=== PATIENT | male | born 1970 | race African-American/Black ===

== ENCOUNTER 2016-11-18 00:36 | Emergency (ER) | payer MEDICARE, MEDICAID ==
[2016-11-18] MEDS ORDERED: oxyCODONE/Acetamin 5/325 MG* TAB PO ONE (01:14)
[2016-11-18] MEDS ORDERED: Tetan/Diph/Pertus SYR(Tdap)* 0.5 ML SYR(BOOSTRIX) use SYR IM ONE ×2 (01:16→02:01)
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
[2016-11-18 04:21] VITALS: BP 132/71
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
== END 2016-11-18 04:30 | disposition home or self-care (01) ==
LOC: ED 00:36
DX: R51 Headache (principal); S06.9X1A Unspecified intracranial injury with loss of consciousness of 30 minutes or less, initial encounter; S01.01XA Laceration without foreign body of scalp, initial encounter; S00.83XA Contusion of other part of head, initial encounter; S09.90XA Unspecified injury of head, initial encounter; W22.8XXA Striking against or struck by other objects, initial encounter; Y93.9 Activity, unspecified; Y92.9 Unspecified place or not applicable
CPT/HCPCS: 70450; 70486; 72125; 90471; 90715; 99284; A9270-GY

== ENCOUNTER 2017-12-31 04:06 | Emergency (ER) | payer MEDICAID, MEDICARE ==
[2017-12-31] MEDS ORDERED: NS 0.9% 1000 ML* 1,000 ML IV ONE (04:28)
[2017-12-31] MEDS ORDERED: Morphine VIAL* 10 MG/ML 1 ML VIAL IV ONE (04:32)
[2017-12-31] MEDS ORDERED: Ondansetron INJ* 2 MG/ML VIAL IV ONE (04:33)
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
[2017-12-31 04:56] LABS: ABS Basophils 0.1 10^3/ul (0-0.2); ABS Eosinophils 0 10^3/ul (0-0.6); ABS Lymphocytes 1.4 10^3/ul (1.0-4.8); ABS Monocytes 1.1 10^3/ul (0-0.8); ABS Neutrophils 9.7 10^3/ul (1.5-7.7); ABS Nucleated RBC 0 10^3/ul; Eosinophil % 0.4 % (0-6); Hematocrit 48 % (42-52); Hemoglobin 15.7 g/dl (14.0-18.0); Mean Corpuscular HGB Conc 33 g/dl (31-36); Mean Corpuscular Hemoglobin 29 pg (27-31); Mean Corpuscular Volume 87 fL (80-94); Mean Platelet Volume 9.9 um3 (7.4-10.4); Nucleated Red Blood Cells % 0; Platelet Count 199 10^3/ul (150-450); Red Blood Count 5.52 10^6/ul (4.00-5.40); Red Cell Distribution Width 15 % (10.5-15); White Blood Count 12.3 10^3/ul (3.5-10.8)
[2017-12-31 05:02] LABS: INR 0.86 (0.77-1.02)
[2017-12-31] MEDS ORDERED: Iodixanol* (CONTRAST) 320 MG/ML 100 ML SDV IV ONE (05:08)
[2017-12-31 05:13] LABS: EGFR Non-African American 77.4 (>60)
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
[2017-12-31] MEDS ORDERED: Morphine INJ* 4 MG/ML 1 ML SYRINGE (NEW SYRINGE VERSION) ONE (06:13)
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
[2017-12-31 06:54] VITALS: BP 143/71
--- NOTE | 2017-12-31 08:36 | RAD ---
Indication: Chest pain. History of tobacco use. Comparison: December 31, 2017 CT. Technique: Upright AP 0432 hours Report: Clear lungs and pleural spaces. Negative for pneumothorax. The heart, pulmonary vasculature, and mediastinal contours are unremarkable. Unremarkable osseous structures and soft tissue contours. IMPRESSION: #. No evidence for acute intrathoracic disease. R0
== END 2017-12-31 06:54 | disposition short-term general hospital (02) ==
LOC: ED 04:06
DX: S02.2XXA Fracture of nasal bones, initial encounter for closed fracture (principal); S02.609A Fracture of mandible, unspecified, initial encounter for closed fracture; S09.90XA Unspecified injury of head, initial encounter; Y09 Assault by unspecified means; Y92.9 Unspecified place or not applicable
CPT/HCPCS: 36415; 70450; 70486; 71045; 71260; 72125; 74177; 80053; 80320; 82550; 83605; 84484; 85025; 85610; 93005; 96374; 96375; 99284; G0480; J2270; J2405; Q9967

== ENCOUNTER 2018-03-26 00:20 | Emergency (ER) | payer SELFPAY ==
[2018-03-26] MEDS ORDERED: Tetan/Diph/Pertus SYR(Tdap)* 0.5 ML SYR(BOOSTRIX) use SYR IM ONE (00:30)
[2018-03-26] MEDS ORDERED: LORazepam TAB(*) 1 MG PO ONE (00:36)
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
[2018-03-26] MEDS ORDERED: Cephalexin CAP* 500 MG PO ONE (02:07)
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
[2018-03-26 08:01] VITALS: BP 144/89
== END 2018-03-26 08:10 | disposition home or self-care (01) ==
LOC: ED 00:20
DX: S00.83XA Contusion of other part of head, initial encounter (principal); Y09 Assault by unspecified means; Y92.9 Unspecified place or not applicable; S09.90XA Unspecified injury of head, initial encounter; S01.511A Laceration without foreign body of lip, initial encounter; F17.210 Nicotine dependence, cigarettes, uncomplicated
CPT/HCPCS: 12001; 12011; 70450; 70486; 72125; 90471; 90715; 99283; A9270-GY

== ENCOUNTER 2018-06-25 11:26 | Emergency (ER) | payer SELFPAY ==
[2018-06-25] MEDS ORDERED: Ondansetron INJ* 2 MG/ML VIAL IV ONE (11:32)
[2018-06-25] MEDS ORDERED: NS 0.9% 1000 ML** 1,000 ML IV ONE (11:32)
[2018-06-25] MEDS ORDERED: Ondansetron INJ* 2 MG/ML VIAL ONE (11:33)
--- NOTE | 2018-06-25 11:34 | ED ---
Nausea/Vomiting/Diarrhea HPI - HPI Summary HPI Summary: Patient is an otherwise healthy 47-year-old male presenting to the ED with nausea, vomiting since this morning. He states he ate some "bad pork" last evening and feels he may have food poisoning. He denies any diarrhea or constipation. He endorses some epigastric tenderness. Patient does admit to smoking approximately one pack of cigarettes every other day and alcohol use daily. He has never had anything like this before. He takes no medications. He denies any fevers, however is endorsing sweats and chills. He denies any body aches. Denies any known sick contacts. He did not receive the flu vaccine this year. - History of Current Complaint Chief Complaint: EDNauseaVomitDiarrh Stated Complaint: VOMITING PER EMS Time Seen by Provider: 06/25/18 11:28 Hx Obtained From: Patient Timing: Constant Severity Initially: Moderate Severity Currently: Moderate Pain Intensity: 0 Pain Scale Used: 0-10 Numeric Character: Cramping Aggravating Factor(s): Nothing Alleviating Factor(s): Nothing Vomiting Frequency: Every 15-60 minutes Nausea/Vomiting Duration: 0-12 hours Vomiting Characteristics: Retching Diarrhea Presence: No - Risk Factors Influenza Risk Factors: Negative Surgical Obstruction Risk Factor(s): Negative - Allergies/Home Medications Allergies/Adverse Reactions: Allergies Allergy/AdvReac Type Severity Reaction Status Date / Time No Known Allergies Allergy Verified 12/31/17 04:15 PMH/Surg Hx/FS Hx/Imm Hx Previously Healthy: Yes Endocrine/Hematology History: Reports: Hx Diabetes Respiratory History: Denies: Hx Lung Cancer GI History: Denies: Hx Ileostomy History: Denies: Hx Dialysis Musculoskeletal History: Reports: Hx Rheumatoid Arthritis Sensory History: Denies: Hx Legally Blind, Hx Deafness Opthamlomology History: Denies: Hx Legally Blind Neurological History: Denies: Hx Dementia Psychiatric History: Denies: Hx Autism - Immunization History Date of Tetanus Vaccine: unk Date of Influenza Vaccine: none Hx Pertussis Vaccination: No Immunizations Up to Date: Yes Infectious Disease History: No Infectious Disease History: Denies: Traveled Outside the [place] in Last 30 Days - Family History Known Family History: Positive: Hypertension, Diabetes - Social History Occupation: Employed Full-time Lives: With Family Alcohol Use: Daily Hx Substance Use: No Substance Use Type: Reports: None Hx Tobacco Use: Yes Smoking Status (MU): Light Every Day Tobacco Smoker Review of Systems Constitutional: Negative Negative: Fever, Chills, Fatigue, Skin Diaphoresis Negative: Palpitations, Chest Pain Negative: Shortness Of Breath, Cough Positive: Abdominal Pain, Vomiting, Nausea. Negative: Diarrhea Genitourinary: Negative Positive: no symptoms reported, see HPI Negative: Arthralgia, Myalgia Skin: Negative All Other Systems Reviewed And Are Negative: Yes Physical Exam Triage Information Reviewed: Yes Vital Signs On Initial Exam: Initial Vitals Temp Pulse Resp BP Pulse Ox 96.6 F 93 18 150/98 98 06/25/18 11:30 06/25/18 11:30 06/25/18 11:30 06/25/18 11:30 06/25/18 11:30 Vital Signs Reviewed: Yes Appearance: Positive: Well-Appearing, Well-Nourished Skin: Positive: Warm, Skin Color Reflects Adequate Perfusion Head/Face: Positive: Normal Head/Face Inspection Eyes: Positive: EOMI, Conjunctiva Clear Neck: Positive: Supple, Nontender, No Lymphadenopathy Respiratory/Lung Sounds: Positive: Clear to Auscultation, Breath Sounds Present Cardiovascular: Positive: RRR, Pulses are Symmetrical in both Upper and Lower Extremities Abdomen Description: Positive: Soft, Other: - tenderness to the epigastric Musculoskeletal: Positive: Normal, Strength/ROM Intact Neurological: Positive: Alert, Oriented to Person Place, Time, Speech Normal Diagnostics - Vital Signs Vital Signs Temp Pulse Resp BP Pulse Ox 06/25/18 11:30 96.6 F 93 18 150/98 98 - Laboratory Result Diagrams: 06/25/18 12:10 06/25/18 11:40 Lab Statement: Any lab studies that have been ordered have been reviewed, and results considered in the medical decision making process. Naus/Vom/Diarrhea Course/Dx - Course Course Of Treatment: The course of treatment, the patient's evaluated for nausea , vomiting. Influenza obtained. Labs obtained. He is given 1 L normal saline and 4 mg IV Zofran on arrival. This all with good effect. Patient states he feels improved and would like to be discharged home. Labs obtained are all WNL. He is given a prescription for Zofran. He will be discharged diagnosis of nausea and vomiting. Influenza negative. - Differential Dx/Diagnosis Provider Diagnosis: Nausea & vomiting Condition At Discharge: Stable Discharge - Sign-Out/Discharge Documenting (check all that apply): Patient Departure Patient Received Moderate/Deep Sedation with Procedure: No - Discharge Plan Condition: Stable Disposition: HOME Prescriptions: Ondansetron ODT TAB* [Zofran 4 MG Odt TAB*] 4 mg PO Q6H PRN #12 tab.odt MDD 4 PRN Reason: Nausea Patient Education Materials: Acute Nausea and Vomiting (ED) Referrals: No Primary Care Phys,NOPCP [Primary Care Provider] - Additional Instructions: Zofran up to every 4 hours as needed for nausea and vomiting Drink plenty of fluids - Billing Disposition and Condition Condition: STABLE Disposition: Home
[2018-06-25 12:19] LABS: Albumin 4.4 g/dL (3.2-5.2); Anion Gap 10 mmol/L (2-11); CO2 Carbon Dioxide 21 mmol/L (22-32); Chloride 103 mmol/L (101-111); Potassium 4.7 mmol/L (3.5-5.0); Sodium 134 mmol/L (135-145)
[2018-06-25 12:22] LABS: ABS Basophils 0 10^3/ul (0-0.2); ABS Eosinophils 0.1 10^3/ul (0-0.6); ABS Lymphocytes 0.4 10^3/ul (1.0-4.8); ABS Monocytes 0.8 10^3/ul (0-0.8); ABS Neutrophils 10.2 10^3/ul (1.5-7.7); ABS Nucleated RBC 0 10^3/ul; Eosinophil % 1.2 %; Hematocrit 52 % (36-46); Hemoglobin 16.7 g/dL (14.0-18.0); Lymphocyte % 3.5 %; Mean Corpuscular HGB Conc 32 g/dL (31-36); Mean Corpuscular Hemoglobin 29 pg (27-31); Mean Corpuscular Volume 89 fL (80-94); Nucleated Red Blood Cells % 0; Platelet Count 189 10^3/uL (150-450); Red Blood Count 5.84 10^6 /uL (4.18-5.48); Red Cell Distribution Width 15 % (10.5-15); White Blood Count 11.6 10^3/uL (3.5-10.8)
[2018-06-25 12:25] LABS: ALT 27 U/L (7-52); AST 28 U/L (13-39); Albumin/Globulin Ratio 1.5 (1-3); Alkaline Phosphatase 64 U/L (34-104); BUN/Creatinine Ratio 17.8 (8-20); Blood Urea Nitrogen 18 mg/dL (6-24); EGFR African American 95.8 (>60); EGFR Non-African American 79.2 (>60); Globulin 2.9 g/dL (2-4); Glucose 99 mg/dL (70-100); Total Protein 7.3 g/dL (6.4-8.9)
[2018-06-25 12:42] LABS: Influenza A Molecular NEGATIVE (Negative); Influenza B Molecular NEGATIVE (Negative)
[2018-06-25 12:46] LABS: Alcohol < 10 mg/dL (<10)
[2018-06-25 14:26] VITALS: BP 149/88
== END 2018-06-25 14:26 | disposition home or self-care (01) ==
LOC: ED 11:26
DX: R11.2 Nausea with vomiting, unspecified (principal); R10.816 Epigastric abdominal tenderness; E11.9 Type 2 diabetes mellitus without complications; F17.200 Nicotine dependence, unspecified, uncomplicated
CPT/HCPCS: 36415; 80053; 80320; 83605; 85025; 96361; 96374; 99282; G0480; J2405

== ENCOUNTER 2022-03-31 17:35 | Inpatient (IN) ==
[2022-03-31] MEDS ORDERED: Morphine 4 MG/ML VIAL (1 ml) ONE (17:37)
[2022-03-31] MEDS ORDERED: Morphine 4 MG/ML VIAL (1 ml) IV ONE (18:04)
[2022-03-31 18:48] LABS: ABS Basophils 0.1 10^3/ul (0-0.2); ABS Eosinophils 0.1 10^3/ul (0-0.6); ABS Monocytes 0.8 10^3/ul (0-0.8); ABS Neutrophils 10.8 10^3/ul (1.5-7.7); Eosinophil % 0.5 %; Hematocrit 45 % (42-52); Hemoglobin 14.3 g/dL (14.0-18.0); Lymphocyte % 8.2 %; Mean Corpuscular HGB Conc 32 g/dL (31-36); Mean Corpuscular Hemoglobin 28 pg (27-31); Mean Corpuscular Volume 88 fL (80-94); Mean Platelet Volume 9.8 fL (7.4-10.4); Platelet Count 189 10^3/uL (150-450); Red Blood Count 5.09 10^6 /uL (4.18-5.48); Red Cell Distribution Width 16 % (10-15); White Blood Count 12.7 10^3/uL (3.5-10.8)
[2022-03-31 18:57] LABS: INR 1.05 (0.88-1.18)
[2022-03-31 19:19] LABS: Albumin 4.1 g/dL (3.2-5.2); Albumin/Globulin Ratio 1.9 (1-3); Calcium 8.8 mg/dL (8.6-10.3); Globulin 2.2 g/dL (2-4); Potassium 4.8 mmol/L (3.5-5.0); Total Bilirubin 0.5 mg/dL (0.2-1.0); Total Protein 6.3 g/dL (6.4-8.9); eGFR CKD-EPI 78.7 (>60)
[2022-03-31] MEDS ORDERED: Enoxaparin 40 MG/0.4 ML SYR SUBCUT ONE (19:42)
[2022-03-31] MEDS ORDERED: hydrALAZINE 20 mg/ml 1 ML Vial IV IV SLOW PU ONE (20:23)
[2022-03-31] MEDS ORDERED: Labetalol IV 5 MG/ML 20 ml VIAL IV PUSH ONE (20:26)
[2022-03-31] MEDS ORDERED: Senna TAB 8.6 mg TAB PO PRN (20:31)
[2022-03-31] MEDS ORDERED: Magnesium Hydroxide LIQ 30 ML UDC PO PRN (20:31)
[2022-03-31] MEDS ORDERED: Polyethylene Glycol 3350 17 GM PACKET PO PRN (20:31)
[2022-03-31] MEDS ORDERED: Labetalol IV 5 MG/ML 20 ml VIAL ONE (20:37)
[2022-04-01 05:33] LABS: ABS Basophils 0.1 10^3/ul (0-0.2); ABS Eosinophils 0.2 10^3/ul (0-0.6); ABS Lymphocytes 2.8 10^3/ul (1.0-4.8); ABS Monocytes 0.8 10^3/ul (0-0.8); ABS Neutrophils 4.2 10^3/ul (1.5-7.7); Eosinophil % 1.9 %; Hematocrit 41 % (42-52); Hemoglobin 13.7 g/dL (14.0-18.0); Lymphocyte % 34.8 %; Mean Corpuscular HGB Conc 34 g/dL (31-36); Mean Corpuscular Hemoglobin 30 pg (27-31); Mean Corpuscular Volume 88 fL (80-94); Mean Platelet Volume 9.8 fL (7.4-10.4); Nucleated Red Blood Cells % 0.1; Platelet Count 168 10^3/uL (150-450); Red Blood Count 4.65 10^6 /uL (4.18-5.48); Red Cell Distribution Width 16 % (10-15)
[2022-04-01 06:10] LABS: Calcium 8.3 mg/dL (8.6-10.3); Potassium 4.1 mmol/L (3.5-5.0); eGFR CKD-EPI 85.9 (>60)
[2022-04-01] MEDS ORDERED: ceFAZolin 2 GM in NS PREMIX 2 GM/100 ML BAG IVPB ONE (09:44)
[2022-04-01] MEDS ORDERED: fentaNYL 100 mcg/2 ml 50 MCG/ML VIAL ONE ×3 (11:19→14:38)
[2022-04-01] MEDS ORDERED: Midazolam 2 mg/2 ml VIAL 1 mg/ml 2 ml VIAL (2 mg) ONE (11:19)
[2022-04-01] MEDS ORDERED: Dexamethasone IV 4 MG/ML VIAL 1 ml VIAL ONE (11:20)
[2022-04-01] MEDS ORDERED: Propofol 10 MG/ML 20 ML BTL ONE ×2 (11:20→15:15)
[2022-04-01] MEDS ORDERED: Rocuronium 50 mg VIAL 10 mg/ml 5 ml VIAL (50 mg) ONE (11:20)
[2022-04-01] MEDS ORDERED: Lidocaine 2% PF 5 ML VIAL ONE (11:20)
[2022-04-01] MEDS ORDERED: Phenylephrine 40 mcg/mL 10mL (400mcg) SYRINGE ONE (12:10)
[2022-04-01] MEDS ORDERED: Vancomycin 1,000 MG VIAL ONE (14:18)
[2022-04-01] MEDS ORDERED: Acetaminophen IV 1 GM/100ML 1,000 MG/100 ML BAG IV ONE (14:38)
[2022-04-01] MEDS ORDERED: Ondansetron 4 mg VIAL 2 MG/ML 2 ml VIAL ONE (14:40)
[2022-04-01] MEDS ORDERED: HYDROmorphone 1 MG/1 ML SYRINGE IV PRN (14:46)
[2022-04-01] MEDS ORDERED: Naloxone 0.4 mg VIAL 0.4 mg/ml 1 ml VIAL IV PRN (14:46)
[2022-04-01] MEDS ORDERED: fentaNYL 100 mcg/2 ml 50 MCG/ML VIAL IV PRN (14:46)
[2022-04-01] MEDS ORDERED: Ondansetron 4 mg VIAL 2 MG/ML 2 ml VIAL IV PRN (14:46)
[2022-04-01] MEDS ORDERED: Bupivacaine 0.5% SDV PF 30ML VIAL ONE (15:17)
[2022-04-01] MEDS: ceFAZolin 1 GM in Dextrose 1 GM/50 ML BAG IVPB SCH (20:24)
[2022-04-02] MEDS: ceFAZolin 1 GM in Dextrose 1 GM/50 ML BAG IVPB SCH ×2 (04:14→11:47)
[2022-04-02 07:01] LABS: ABS Basophils 0.1 10^3/ul (0-0.2); ABS Eosinophils 0.1 10^3/ul (0-0.6); ABS Lymphocytes 2.1 10^3/ul (1.0-4.8); ABS Neutrophils 6.3 10^3/ul (1.5-7.7); Eosinophil % 0.7 %; Hematocrit 33 % (42-52); Hemoglobin 11.2 g/dL (14.0-18.0); Lymphocyte % 22.5 %; Mean Corpuscular HGB Conc 34 g/dL (31-36); Mean Corpuscular Hemoglobin 29 pg (27-31); Mean Corpuscular Volume 87 fL (80-94); Mean Platelet Volume 9.6 fL (7.4-10.4); Platelet Count 144 10^3/uL (150-450); Red Blood Count 3.82 10^6 /uL (4.18-5.48); Red Cell Distribution Width 15 % (10-15); White Blood Count 9.6 10^3/uL (3.5-10.8)
[2022-04-02 07:43] LABS: Albumin 3.2 g/dL (3.2-5.2); Calcium 7.7 mg/dL (8.6-10.3); Globulin 1.6 g/dL (2-4); Potassium 4.3 mmol/L (3.5-5.0); Total Bilirubin 0.3 mg/dL (0.2-1.0); Total Protein 4.8 g/dL (6.4-8.9); eGFR CKD-EPI 93.4 (>60)
[2022-04-02 07:57] LABS: INR 1.05 (0.88-1.18)
[2022-04-02] MEDS: Multivitamins/Minerals TAB PO SCH (09:31)
[2022-04-02] MEDS: Enoxaparin 40 MG/0.4 ML SYR SUBCUT SCH (11:47)
[2022-04-02] MEDS: Magnesium Hydroxide LIQ 30 ML UDC PO SCH (12:39)
[2022-04-02 13:40] LABS: Folate 5.59 ng/mL (5.90-24.80)
[2022-04-02] MEDS ORDERED: Cyanocobalamin INJ 1,000 MCG/ML VIAL 1 ML VIAL IM ONE (14:37)
[2022-04-02 15:51] LABS: Hematocrit 32 % (42-52); Hemoglobin 10.3 g/dL (14.0-18.0)
[2022-04-03 06:09] LABS: ABS Eosinophils 0.2 10^3/ul (0-0.6); ABS Lymphocytes 1.8 10^3/ul (1.0-4.8); ABS Monocytes 0.8 10^3/ul (0-0.8); ABS Neutrophils 4.3 10^3/ul (1.5-7.7); Eosinophil % 2.6 %; Hematocrit 33 % (42-52); Hemoglobin 10.5 g/dL (14.0-18.0); Lymphocyte % 25.7 %; Mean Corpuscular HGB Conc 32 g/dL (31-36); Mean Corpuscular Hemoglobin 28 pg (27-31); Mean Corpuscular Volume 88 fL (80-94); Mean Platelet Volume 10.6 fL (7.4-10.4); Platelet Count 158 10^3/uL (150-450); Red Blood Count 3.73 10^6 /uL (4.18-5.48); Red Cell Distribution Width 16 % (10-15); White Blood Count 7.2 10^3/uL (3.5-10.8)
[2022-04-03] MEDS ORDERED: Cyanocobalamin INJ 1,000 MCG/ML VIAL 1 ML VIAL IM ONE (09:23)
[2022-04-03] MEDS: Multivitamins/Minerals TAB PO SCH (09:53)
[2022-04-03] MEDS: Magnesium Hydroxide LIQ 30 ML UDC PO SCH (09:54)
[2022-04-03] MEDS: Enoxaparin 40 MG/0.4 ML SYR SUBCUT SCH (12:47)
[2022-04-03] MEDS: Nicotine GUM 2MG FRUIT FLAVOR PO PRN (20:29)
[2022-04-04 05:55] LABS: ABS Basophils 0.1 10^3/ul (0-0.2); ABS Eosinophils 0.2 10^3/ul (0-0.6); ABS Lymphocytes 2.2 10^3/ul (1.0-4.8); ABS Monocytes 0.8 10^3/ul (0-0.8); ABS Neutrophils 5.3 10^3/ul (1.5-7.7); Eosinophil % 1.8 %; Hematocrit 34 % (42-52); Hemoglobin 10.9 g/dL (14.0-18.0); Lymphocyte % 26.1 %; Mean Corpuscular HGB Conc 32 g/dL (31-36); Mean Corpuscular Hemoglobin 28 pg (27-31); Mean Corpuscular Volume 89 fL (80-94); Mean Platelet Volume 10.5 fL (7.4-10.4); Platelet Count 167 10^3/uL (150-450); Red Blood Count 3.82 10^6 /uL (4.18-5.48); Red Cell Distribution Width 15 % (10-15); White Blood Count 8.6 10^3/uL (3.5-10.8)
[2022-04-04 06:06] LABS: Calcium 8.2 mg/dL (8.6-10.3); Potassium 4.2 mmol/L (3.5-5.0)
[2022-04-04 06:11] LABS: eGFR CKD-EPI 104.8 (>60)
[2022-04-04] MEDS: Magnesium Hydroxide LIQ 30 ML UDC PO SCH (08:14)
[2022-04-04] MEDS: Multivitamins/Minerals TAB PO SCH (08:15)
[2022-04-04] MEDS: Nicotine GUM 2MG FRUIT FLAVOR PO PRN (08:16)
[2022-04-04] MEDS ORDERED: Cyanocobalamin INJ 1,000 MCG/ML VIAL 1 ML VIAL IM ONE (10:04)
[2022-04-04] MEDS: Enoxaparin 40 MG/0.4 ML SYR SUBCUT SCH (11:43)
[2022-04-05 06:29] LABS: ABS Basophils 0.1 10^3/ul (0-0.2); ABS Eosinophils 0.2 10^3/ul (0-0.6); ABS Lymphocytes 2.1 10^3/ul (1.0-4.8); ABS Monocytes 1.1 10^3/ul (0-0.8); ABS Neutrophils 6.4 10^3/ul (1.5-7.7); Eosinophil % 1.9 %; Hematocrit 35 % (42-52); Hemoglobin 11.5 g/dL (14.0-18.0); Lymphocyte % 21.8 %; Mean Corpuscular HGB Conc 33 g/dL (31-36); Mean Corpuscular Hemoglobin 29 pg (27-31); Mean Corpuscular Volume 88 fL (80-94); Mean Platelet Volume 10.6 fL (7.4-10.4); Platelet Count 194 10^3/uL (150-450); Red Blood Count 4.01 10^6 /uL (4.18-5.48); Red Cell Distribution Width 15 % (10-15); White Blood Count 9.8 10^3/uL (3.5-10.8)
[2022-04-05 06:58] LABS: Calcium 8.6 mg/dL (8.6-10.3); Potassium 4.8 mmol/L (3.5-5.0)
[2022-04-05 07:04] LABS: eGFR CKD-EPI 103.8 (>60)
[2022-04-05] MEDS: Multivitamins/Minerals TAB PO SCH (08:54)
[2022-04-05] MEDS: Magnesium Hydroxide LIQ 30 ML UDC PO SCH (08:54)
[2022-04-05] MEDS: Enoxaparin 40 MG/0.4 ML SYR SUBCUT SCH (12:53)
[2022-04-05] MEDS: Cyanocobalamin INJ 1,000 MCG/ML VIAL 1 ML VIAL IM SCH (17:07)
[2022-04-06 06:46] LABS: ABS Basophils 0.1 10^3/ul (0-0.2); ABS Eosinophils 0.2 10^3/ul (0-0.6); ABS Lymphocytes 1.8 10^3/ul (1.0-4.8); ABS Neutrophils 7.6 10^3/ul (1.5-7.7); Eosinophil % 1.9 %; Hematocrit 35 % (42-52); Hemoglobin 11.5 g/dL (14.0-18.0); Lymphocyte % 17.3 %; Mean Corpuscular HGB Conc 33 g/dL (31-36); Mean Corpuscular Hemoglobin 29 pg (27-31); Mean Corpuscular Volume 88 fL (80-94); Mean Platelet Volume 9.9 fL (7.4-10.4); Nucleated Red Blood Cells % 0.1; Platelet Count 243 10^3/uL (150-450); Red Blood Count 3.95 10^6 /uL (4.18-5.48); Red Cell Distribution Width 15 % (10-15); White Blood Count 10.7 10^3/uL (3.5-10.8)
[2022-04-06 06:55] LABS: Blood Urea Nitrogen 15 mg/dL (6-24); CO2 Carbon Dioxide 28 mmol/L (22-32); Calcium 8.3 mg/dL (8.6-10.3); Chloride 100 mmol/L (101-111); Glucose 105 mg/dL (70-100); Sodium 136 mmol/L (135-145); eGFR CKD-EPI 107.6 (>60)
[2022-04-06 06:57] LABS: Anion Gap 8 mmol/L (2-11)
[2022-04-06] MEDS: Multivitamins/Minerals TAB PO SCH (07:58)
[2022-04-06] MEDS: Magnesium Hydroxide LIQ 30 ML UDC PO SCH (08:06)
[2022-04-06] MEDS ORDERED: COVID VACC, MONOVAL PFIZER-TRIS 30 MCG/0.3 ML SYR IM ONE (13:00)
[2022-04-06] MEDS: Enoxaparin 40 MG/0.4 ML SYR SUBCUT SCH (14:20)
[2022-04-06] MEDS: Cyanocobalamin INJ 1,000 MCG/ML VIAL 1 ML VIAL IM SCH (17:42)
[2022-04-07 05:58] LABS: Hematocrit 36 % (42-52); Hemoglobin 11.5 g/dL (14.0-18.0); Mean Corpuscular HGB Conc 32 g/dL (31-36); Mean Corpuscular Hemoglobin 28 pg (27-31); Mean Corpuscular Volume 88 fL (80-94); Mean Platelet Volume 9.5 fL (7.4-10.4); Platelet Count 280 10^3/uL (150-450); Red Blood Count 4.11 10^6 /uL (4.18-5.48); Red Cell Distribution Width 16 % (10-15); White Blood Count 9.9 10^3/uL (3.5-10.8)
[2022-04-07 06:08] LABS: ABS Eosinophils 0.2 10^3/ul (0-0.6); ABS Lymphocytes 1.5 10^3/ul (1.0-4.8); ABS Monocytes 1.1 10^3/ul (0-0.8); ABS Neutrophils 7.2 10^3/ul (1.5-7.7); Eosinophil % 1.6 %; Nucleated Red Blood Cells % 0.1
[2022-04-07 06:27] LABS: Calcium 8.5 mg/dL (8.6-10.3); Potassium 4.7 mmol/L (3.5-5.0)
[2022-04-07 06:33] LABS: eGFR CKD-EPI 103.8 (>60)
[2022-04-07] MEDS ORDERED: Influenza vaccine *QUAD* *2022-23* 0.5 ML SYRINGE IM ONE (09:00)
[2022-04-07] MEDS: Magnesium Hydroxide LIQ 30 ML UDC PO SCH (10:50)
[2022-04-07] MEDS: Multivitamins/Minerals TAB PO SCH (10:51)
[2022-04-07 11:31] VITALS: BP 150/76
== END 2022-04-07 11:26 | disposition swing bed (61) | DRG 308 ==
LOC: ED 17:35 → SUATTDRO 19:38 → EDHOLD 19:38 → SSU 04-01 16:46
PROVIDERS: ADMIT Student in an Organized Health Care Education/Training Program; ATTEND Internal Medicine

== ENCOUNTER 2022-04-07 13:07 | Inpatient (IN) ==
[2022-04-07] MEDS ORDERED: Polyethylene Glycol 3350 17 GM PACKET PO PRN (14:17)
[2022-04-07] MEDS ORDERED: Nicotine GUM 2MG FRUIT FLAVOR PO PRN (14:17)
[2022-04-07] MEDS ORDERED: Senna TAB 8.6 mg TAB PO PRN (14:17)
[2022-04-07] MEDS ORDERED: Cyanocobalamin INJ 1,000 MCG/ML VIAL 1 ML VIAL IM SCH (15:00)
[2022-04-07] MEDS: Enoxaparin 40 MG/0.4 ML SYR SUBCUT SCH (16:02)
[2022-04-08] MEDS: Magnesium Hydroxide LIQ 30 ML UDC PO SCH (08:08)
[2022-04-08] MEDS: Multivitamins/Minerals TAB PO SCH (08:13)
[2022-04-08] MEDS: Enoxaparin 40 MG/0.4 ML SYR SUBCUT SCH (15:03)
[2022-04-09] MEDS: Magnesium Hydroxide LIQ 30 ML UDC PO SCH (08:04)
[2022-04-09] MEDS: Multivitamins/Minerals TAB PO SCH (08:05)
[2022-04-09] MEDS: Enoxaparin 40 MG/0.4 ML SYR SUBCUT SCH (15:03)
[2022-04-10] MEDS: Magnesium Hydroxide LIQ 30 ML UDC PO SCH (08:10)
[2022-04-10] MEDS: Multivitamins/Minerals TAB PO SCH (08:12)
[2022-04-10] MEDS: Enoxaparin 40 MG/0.4 ML SYR SUBCUT SCH (15:32)
[2022-04-11] MEDS: Multivitamins/Minerals TAB PO SCH (08:10)
[2022-04-11] MEDS: Magnesium Hydroxide LIQ 30 ML UDC PO SCH (08:12)
[2022-04-11] MEDS: Enoxaparin 40 MG/0.4 ML SYR SUBCUT SCH (14:26)
[2022-04-11] MEDS: Senna TAB 8.6 mg TAB PO SCH (21:51)
[2022-04-12] MEDS: Magnesium Hydroxide LIQ 30 ML UDC PO SCH (08:14)
[2022-04-12] MEDS: Multivitamins/Minerals TAB PO SCH (08:16)
[2022-04-12] MEDS: Enoxaparin 40 MG/0.4 ML SYR SUBCUT SCH (16:11)
[2022-04-12] MEDS: Senna TAB 8.6 mg TAB PO SCH (19:49)
[2022-04-13] MEDS: Magnesium Hydroxide LIQ 30 ML UDC PO SCH (08:26)
[2022-04-13] MEDS: Multivitamins/Minerals TAB PO SCH (08:27)
[2022-04-13] MEDS: Enoxaparin 40 MG/0.4 ML SYR SUBCUT SCH (14:51)
[2022-04-13] MEDS: Senna TAB 8.6 mg TAB PO SCH (21:10)
[2022-04-14] MEDS: Magnesium Hydroxide LIQ 30 ML UDC PO SCH (08:36)
[2022-04-14] MEDS: Multivitamins/Minerals TAB PO SCH (08:37)
[2022-04-14] MEDS: Enoxaparin 40 MG/0.4 ML SYR SUBCUT SCH (15:33)
[2022-04-14] MEDS: Senna TAB 8.6 mg TAB PO SCH (20:49)
[2022-04-15] MEDS: Multivitamins/Minerals TAB PO SCH (08:08)
[2022-04-15] MEDS: Magnesium Hydroxide LIQ 30 ML UDC PO SCH (08:11)
[2022-04-15] MEDS: Enoxaparin 40 MG/0.4 ML SYR SUBCUT SCH (16:37)
[2022-04-15] MEDS: Senna TAB 8.6 mg TAB PO SCH (20:50)
[2022-04-16] MEDS: Multivitamins/Minerals TAB PO SCH (08:17)
[2022-04-16] MEDS: Magnesium Hydroxide LIQ 30 ML UDC PO SCH (08:18)
[2022-04-16] MEDS: Enoxaparin 40 MG/0.4 ML SYR SUBCUT SCH (15:12)
[2022-04-16] MEDS: Senna TAB 8.6 mg TAB PO SCH (21:01)
[2022-04-17] MEDS: Multivitamins/Minerals TAB PO SCH (09:22)
[2022-04-17] MEDS: Magnesium Hydroxide LIQ 30 ML UDC PO SCH (09:22)
[2022-04-17 09:37] LABS: ABS Basophils 0.1 10^3/ul (0-0.2); ABS Eosinophils 0.2 10^3/ul (0-0.6); ABS Lymphocytes 1.7 10^3/ul (1.0-4.8); ABS Monocytes 0.6 10^3/ul (0-0.8); ABS Neutrophils 5.1 10^3/ul (1.5-7.7); Eosinophil % 2.6 %; Hematocrit 37 % (42-52); Hemoglobin 12.2 g/dL (14.0-18.0); Lymphocyte % 22.4 %; Mean Corpuscular HGB Conc 33 g/dL (31-36); Mean Corpuscular Hemoglobin 29 pg (27-31); Mean Corpuscular Volume 87 fL (80-94); Mean Platelet Volume 8.5 fL (7.4-10.4); Nucleated Red Blood Cells % 0.1; Platelet Count 424 10^3/uL (150-450); Red Blood Count 4.22 10^6 /uL (4.18-5.48); Red Cell Distribution Width 15 % (10-15); White Blood Count 7.8 10^3/uL (3.5-10.8)
[2022-04-17 10:21] LABS: Calcium 9.6 mg/dL (8.6-10.3); Creatinine, Serum 1.04 mg/dL (0.67-1.17); eGFR CKD-EPI 86.9 (>60)
[2022-04-17] MEDS: Enoxaparin 40 MG/0.4 ML SYR SUBCUT SCH (16:24)
[2022-04-17] MEDS: Senna TAB 8.6 mg TAB PO SCH (21:15)
[2022-04-18] MEDS: Magnesium Hydroxide LIQ 30 ML UDC PO SCH (08:49)
[2022-04-18] MEDS: Multivitamins/Minerals TAB PO SCH (08:51)
[2022-04-18] MEDS: Enoxaparin 40 MG/0.4 ML SYR SUBCUT SCH (13:53)
[2022-04-18] MEDS: Senna TAB 8.6 mg TAB PO SCH (20:49)
[2022-04-19] MEDS: Magnesium Hydroxide LIQ 30 ML UDC PO SCH (08:38)
[2022-04-19] MEDS: Multivitamins/Minerals TAB PO SCH (08:39)
[2022-04-19] MEDS: Enoxaparin 40 MG/0.4 ML SYR SUBCUT SCH (15:44)
[2022-04-19 20:19] VITALS: BP 160/80
[2022-04-19] MEDS: Senna TAB 8.6 mg TAB PO SCH (21:09)
[2022-04-20] MEDS: Multivitamins/Minerals TAB PO SCH (08:16)
[2022-04-20] MEDS: Magnesium Hydroxide LIQ 30 ML UDC PO SCH (08:17)
== END 2022-04-20 11:57 | disposition home or self-care (01) | DRG 340 ==
LOC: SUATTDRO 13:07 → SSU 13:07
PROVIDERS: ADMIT Internal Medicine; ATTEND Student in an Organized Health Care Education/Training Program